=== PATIENT | male | born 1950 | race Caucasian/White ===

== ENCOUNTER → 2020-04-13 07:16 | Outpatient (CLI) | payer MEDICAID, MEDICARE ==
[2020-04-13 07:46] LABS: BASOPHILS 0.9 % (0-2); EOSINOPHILS 7.8 % (0-7); HEMATOCRIT 42.7 % (42.0-54.0); HEMOGLOBIN 14.2 g/dL (13.5-17.5); IMMATURE GRANULOCYTES 0.1 % (0-5); LYMPHOCYTES 26.7 % (15-50); MCH 32.4 pg (26.0-34.0); MCHC 33.3 g/dL (31.0-37.0); MCV 97.5 fL (80.0-100.0); MONOCYTES 9.1 % (2-11); NEUTROPHILS 55.4 % (40-80); PLATELET COUNT 322 10x3/uL (130-400); RBC 4.38 10x6/uL (4.20-6.10); RDW 12.9 % (11.5-14.5); WBC 8.9 10x3/uL (4.8-10.8)
[2020-04-13 07:54] LABS: INR 1.02 (0.85-1.17); PROTIME 13.3 SECONDS (11.6-15.0)
[2020-04-13 07:55] LABS: APTT 31.6 SECONDS (22.8-39.4)
[2020-04-13 08:01] LABS: CALC OSMOLALITY 278 mosm/kg (275-300); CALCIUM 8.6 mg/dL (8.5-10.1); CARBON DIOXIDE 25.7 mmol/L (21.0-32.0); CHLORIDE - SERUM 107 mmol/L (98-107); GLUCOSE 109 mg/dL (74-106); POTASSIUM - SERUM 4.1 mmol/L (3.5-5.1); SODIUM 139 mmol/L (136-145); UREA NITROGEN 12 mg/dL (7-18); eGFR NON AFRICAN AMERICAN 79 mL/min (90-120)
--- NOTE | 2020-04-13 09:59 | NUR ---
MAGDALENE CANCELLED, PROCEDURE WILL NEED TO BE DONE FROM A DIFFERENT APPROACH. NIDIA WILL CALL DR. CORBIN'S OFFICE TO RESCHEDULE
== END | disposition home or self-care (01) ==
LOC: D.SP 04-10 08:00 → D.CT 04-10 08:00 → D.SP 07:16
PROVIDERS: Radiology Vascular & Interventional Radiology; ATTEND Family Medicine
DX: R91.8 Other nonspecific abnormal finding of lung field (principal); Z53.9 Procedure and treatment not carried out, unspecified reason

== ENCOUNTER → 2020-12-19 08:00 | Outpatient (CLI) | payer MEDICAID ==
[2020-07-04 09:53] VITALS: BMI 26.3
[~2020-12-19 08:00] MED LIST: TESSALON PERLE100 MG PO
== END | disposition home or self-care (01) ==
LOC: D.CT 08:00
PROVIDERS: ATTEND Thoracic Surgery (Cardiothoracic Vascular Surgery)
DX: C34.90 Malignant neoplasm of unspecified part of unspecified bronchus or lung (principal)